=== PATIENT | female | born 1975 | race Caucasian/White ===

== ENCOUNTER → 2017-04-16 | Outpatient (CLI) | payer BC ==
--- NOTE | 2017-04-17 10:13 | MM ---
Reason for exam: screening (asymptomatic). Last mammogram was performed 6 years and 2 months ago. Physical Findings: A clinical breast exam by your physician is recommended on an annual basis and results should be correlated with mammographic findings. MG Screening Mammo w CAD Bilateral CC and MLO view(s) were taken. XCCL view(s) were taken of the left breast. Prior study comparison: February 07, 2011, bilateral digital screening mammo w/CAD. There are scattered fibroglandular densities. There is no discrete abnormality. ASSESSMENT: Negative, BI-RAD 1 RECOMMENDATION: Routine screening mammogram of both breasts in 1 year.
== END | disposition home or self-care (01) ==
LOC: RADMAMWWP 07:30
PROVIDERS: ATTEND Obstetrics & Gynecology
DX: Z12.31 Encounter for screening mammogram for malignant neoplasm of breast (principal)

== ENCOUNTER → 2018-07-17 | Outpatient (CLI) | payer BC ==
--- NOTE | 2018-07-17 14:29 | MM ---
Reason for exam: screening (asymptomatic). Last mammogram was performed 1 year and 3 months ago. Physical Findings: A clinical breast exam by your physician is recommended on an annual basis and results should be correlated with mammographic findings. MG 3D Screening Mammo W/Cad Bilateral CC and MLO view(s) were taken. Prior study comparison: April 16, 2017, bilateral MG screening mammo w CAD. February 07, 2011, bilateral digital screening mammo w/CAD. The breast tissue is heterogeneously dense. This may lower the sensitivity of mammography. Finding: Architectural distortion in the subareolar position of the left breast, stable from 2010. There is no discrete abnormality. ASSESSMENT: Negative, BI-RAD 1 RECOMMENDATION: Routine screening mammogram of both breasts in 1 year.
== END ==
LOC: RADMAMWWP 07:15
PROVIDERS: ATTEND Family Medicine
DX: Z12.31 Encounter for screening mammogram for malignant neoplasm of breast (principal)
CPT/HCPCS: 77063; 77067

== ENCOUNTER 2018-12-26 08:05 | Emergency (ER) | payer BC ==
--- NOTE | 2018-12-26 08:22 | ED ---
Abdominal Pain HPI - General Chief Complaint: Abdominal Pain Stated Complaint: kidney stones Time Seen by Provider: 12/26/18 08:17 Source: patient Mode of arrival: wheelchair Limitations: no limitations - History of Present Illness Initial Comments: 43-year-old female with past history of hypertension and previous nephrolithiasis presenting today for chief complaint of right-sided flank plain that radiates along abdomen towards her groin x 4 hours. Patient states that for him this morning at 4AM she began noticing the right sided flank pain that gradually began radiating down abdomen toward groin, she states is identical to when she's had kidney stones in the past. Patient states the intensity of the pain increases fluctuating in intensity with max being 10 out of 10. Patient states that sometimes the pain is so severe it causes vomiting denies hematemesis. Patient denies any modifying factors. Patient denies any obvious hematuria, dysuria or urgency frequency, chest pain, dyspnea, dyspnea on exertion, numbness, tingling, headache, visual changes, trauma to back or abdomen, melena or hematochezia. Patient does admit to problems is being softer than normal denies kristy diarrhea or constipation. Upon arrival pt is holding right side, appearing uncomfortable. Remaining ROS (-). Upon arrival pt VS within acceptable limits. - Related Data Home Medications Medication Instructions Recorded Confirmed Acetaminophen [Tylenol Extra 500 mg PO TID PRN 12/26/18 12/26/18 Strength] Cholestyramine (with Sugar) 4 gm PO DAILY 12/26/18 12/26/18 [Cholestyramine Packet] Losartan [Cozaar] 25 mg PO DAILY 12/26/18 12/26/18 Previous Rx's Medication Instructions Recorded Cephalexin [Keflex] 500 mg PO Q8HR 5 Days #15 cap 12/26/18 Ketorolac [Toradol] 10 mg PO Q6HR 5 Days #20 tab 12/26/18 Ondansetron [Zofran] 4 mg PO Q8HR PRN 5 Days #15 tab 12/26/18 Allergies Allergy/AdvReac Type Severity Reaction Status Date / Time lisinopril AdvReac Unknown Verified 12/26/18 08:33 Review of Systems ROS Statement: Those systems with pertinent positive or pertinent negative responses have been documented in the HPI. ROS Other: All systems not noted in ROS Statement are negative. Past Medical History Past Medical History: Hypertension Additional Past Medical History / Comment(s): kidney stones History of Any Multi-Drug Resistant Organisms: None Reported Past Surgical History: Section, Cholecystectomy, Tonsillectomy Past Psychological History: No Psychological Hx Reported Smoking Status: Never smoker Past Alcohol Use History: Rare Past Drug Use History: None Reported General Exam - General Exam Comments Initial Comments: General: The patient is awake and alert, no signs of toxicity. Eye: +3 mm pupils are equal, round and reactive to light, extra-ocular movements are intact. No nystagmus. There is normal conjunctiva bilaterally. No signs of icterus. Ears, nose, mouth and throat: There are moist mucous membranes and no oral lesions. Neck: The neck is supple, there is no tenderness or JVD. Cardiovascular: There is a regular rate and rhythm. No rub or gallop is appreciated. Audible murmur. Respiratory: Lungs are clear to auscultation, respirations are non-labored, breath sounds are equal. No wheezes, stridor, rales, or rhonchi. Gastrointestinal: No noted diaphoresis, jaundice, pallor, protecting postures or squirming. Symmetrical pigmentation of abdomen without signs of inflammation, [scars], or striae. Umbilicus mildline, inverted without swelling. No dilated veins. Abdomen contour obese, no noted abdominal distention. No visible masses. No peristalsis, aortic pulsations, or ventral hernia. Bowel sounds audible in all 4 quadrants, unremarkable. Pressing on abdomen on the right side causes pain in the right flank. Liver edge, not palpable. Spleen edge, right and left kidney not palpable. Superior bladder margin non-tender. Special Testing: Negative Graff, Rovsing, McBurney, Betito, cutaneous hyperesthesia. Negative Heel Jar test. No CVA tenderness. Digital rectal exam deferred. Negative norris turners or cullens sign Musculoskeletal: Normal ROM, no tenderness. Strength 5/5. Sensation intact. Pulses equal bilaterally 2+. Neurological: A&O x 3. CN II-XII intact, There are no obvious motor or sensory deficits. Coordination appears grossly intact. Speech is normal. Skin: Skin is warm and dry and no rashes or lesions are noted. Psychiatric: Cooperative, appropriate mood & affect, normal judgment. Limitations: no limitations Course Vital Signs 12/26/18 12/26/18 12/26/18 08:17 10:25 12:05 Temperature 98.2 F 97.6 F 97.7 F Pulse Rate 91 86 83 Respiratory 20 20 18 Rate Blood Pressure 157/86 165/89 150/89 O2 Sat by Pulse 100 100 100 Oximetry Medical Decision Making - Medical Decision Making 43-year-old female with history of renal calculi presenting for right flank pain. Patient states feels similar to stones in the past. Patient given Toradol and Zofran this improved symptoms. Patient given IV fluids. Patient kidney function within normal limits. Patient has mild leukocytosis. Urine consistent with renal calculi, no overt signs of significant infection. Pt will be placed on antibiotics. CT abdomen and KUB revealed large right UJ renal calculi. I discussed the case in detail the time provider Dr. Farfan reviewed imaging studies, this time Dr. Farfan recommended if pain was controlled and patient comfortable with discharge follow-up outpatient with urology. Patient prefers discharge, although admission was offered. Return parameters were discussed at length the patient including immediately return for uncontrolled pain, inability to urinate, fever, chills or nightsweats or any other concerning symptoms. Pt verbalized understanding. Pt given RX for toradol and zofran. Pt discharged appearing well, denied questions at this time aware of all return parameters and outpatient f/u instruction. - Lab Data Result diagrams: 12/26/18 08:40 12/26/18 08:40 Lab Results 12/26/18 12/26/18 12/26/18 Range/Units 08:40 08:40 08:40 WBC 13.6 H (3.8-10.6) k/uL RBC 5.15 (3.80-5.40) m/uL Hgb 13.8 (11.4-16.0) gm/dL Hct 42.7 (34.0-46.0) % MCV 82.9 (80.0-100.0) fL MCH 26.8 (25.0-35.0) pg MCHC 32.3 (31.0-37.0) g/dL RDW 14.3 (11.5-15.5) % Plt Count 286 (150-450) k/uL Neutrophils % 93 % Lymphocytes % 4 % Monocytes % 2 % Eosinophils % 1 % Basophils % 0 % Neutrophils # 12.7 H (1.3-7.7) k/uL Lymphocytes # 0.6 L (1.0-4.8) k/uL Monocytes # 0.2 (0-1.0) k/uL Eosinophils # 0.2 (0-0.7) k/uL Basophils # 0.0 (0-0.2) k/uL Sodium 140 (137-145) mmol/L Potassium 4.3 (3.5-5.1) mmol/L Chloride 106 (98-107) mmol/L Carbon Dioxide 26 (22-30) mmol/L Anion Gap 8 mmol/L BUN 15 (7-17) mg/dL Creatinine 0.97 (0.52-1.04) mg/dL Est GFR (CKD-EPI)AfAm 82 (>60 ml/min/1.73 sqM) Est GFR (CKD-EPI)NonAf 71 (>60 ml/min/1.73 sqM) Glucose 135 H (74-99) mg/dL Calcium 9.6 (8.4-10.2) mg/dL Total Bilirubin 0.7 (0.2-1.3) mg/dL AST 30 (14-36) U/L ALT 56 H (9-52) U/L Alkaline Phosphatase 74 (38-126) U/L Total Protein 7.0 (6.3-8.2) g/dL Albumin 4.2 (3.5-5.0) g/dL Amylase 35 (30-110) U/L Lipase 71 (23-300) U/L Urine Color Yellow Urine Appearance Cloudy H (Clear) Urine pH 5.5 (5.0-8.0) Ur Specific [place] 1.026 (1.001-1.035) Urine Protein 1+ H (Negative) Urine Glucose (UA) Negative (Negative) Urine Ketones Negative (Negative) Urine Blood Large H (Negative) Urine Nitrite Negative (Negative) Urine Bilirubin Negative (Negative) Urine Urobilinogen <2.0 (<2.0) mg/dL Ur Leukocyte Esterase Small H (Negative) Urine RBC 59 H (0-5) /hpf Urine WBC 10 H (0-5) /hpf Ur Squamous Epith Cells 9 H (0-4) /hpf Urine Bacteria Rare H (None) /hpf Hyaline Casts 3 H (0-2) /lpf Urine Mucus Occasional H (None) /hpf Disposition Clinical Impression: Renal calculi Disposition: HOME SELF-CARE Condition: Good Instructions (If sedation given, give patient instructions): Kidney Stones (ED) Additional Instructions: Please use medication as discussed. Please follow-up with urology in next 1-2 days. Please return to emergency room if the symptoms increase or worsen or for any other concerns, or develop fever or pain out of proportion. Prescriptions: Cephalexin [Keflex] 500 mg PO Q8HR 5 Days #15 cap Ketorolac [Toradol] 10 mg PO Q6HR 5 Days #20 tab Ondansetron [Zofran] 4 mg PO Q8HR PRN 5 Days #15 tab PRN Reason: Nausea Is patient prescribed a controlled substance at d/c from ED?: No Referrals: Jaime Gutiérrez MD [Primary Care Provider] - 1-2 days Shaw Cesar MD [STAFF PHYSICIAN] - 1-2 days Time of Disposition: 11:33
[2018-12-26] MEDS: KETOROLAC 30 MG/ML 1 ML VIAL IVP STA ×2 (08:37→10:22)
[2018-12-26] MEDS: ONDANSETRON 4 MG/2 ML VIAL IVP STA ×2 (08:37→10:22)
[2018-12-26 08:54] LABS: Basophils % (A) 0 %; Eosinophils # (A) 0.2 k/uL (0-0.7); Eosinophils % (A) 1 %; HCT 42.7 % (34.0-46.0); HGB 13.8 gm/dL (11.4-16.0); Lymphocytes # (A) 0.6 k/uL (1.0-4.8); Lymphocytes % (A) 4 %; MCH 26.8 pg (25.0-35.0); MCHC 32.3 g/dL (31.0-37.0); MCV 82.9 fL (80.0-100.0); Mean Platelet Volume 6.4; Monocytes # (A) 0.2 k/uL (0-1.0); Monocytes % (A) 2 %; Neutrophils # (A) 12.7 k/uL (1.3-7.7); Neutrophils % (A) 93 %; Platelet Count 286 k/uL (150-450); RBC 5.15 m/uL (3.80-5.40); RDW 14.3 % (11.5-15.5); WBC 13.6 k/uL (3.8-10.6)
[2018-12-26 08:59] LABS: Appearance,Urine Cloudy (Clear); Bacteria,Urine Rare /hpf; Bilirubin,Urine Negative (Negative); Blood,Urine Large (Negative); Color,Urine Yellow; Glucose,Urine (UA) Negative (Negative); Hyaline Casts,Urine 3 /lpf (0-2); Ketones,Urine Negative (Negative); Leukocyte Esterase,Urine Small (Negative); Mucus,Urine Occasional /hpf; Nitrite,Urine Negative (Negative); PH, Urine 5.5 (5.0-8.0); Protein,Urine 1+ (Negative); RBC,Urine 59 /hpf (0-5); Specific Gravity,Urine 1.026 (1.001-1.035); Squamous Epithelial Cell,Urine 9 /hpf (0-4); Urobilinogen,Urine <2.0 mg/dL (<2.0); WBC,Urine 10 /hpf (0-5)
[2018-12-26 09:04] LABS: Albumin 4.2 g/dL (3.5-5.0); Calcium 9.6 mg/dL (8.4-10.2); Potassium 4.3 mmol/L (3.5-5.1); Total Bilirubin 0.7 mg/dL (0.2-1.3)
--- NOTE | 2018-12-26 10:51 | XR ---
EXAMINATION TYPE: XR KUB DATE OF EXAM: 12/26/2018 COMPARISON: None INDICATION: Abdomen pain TECHNIQUE: Single view abdomen upright view FINDINGS: There is a normal bowel gas pattern. Psoas margins are normal. No organomegaly is present. There is a 1.1 x 1.4 cm calcification which may be within the right renal pelvis or ureteropelvic daniel ction. Suspected phleboliths are within the pelvis. IMPRESSION: 1. Right-sided ureteral pelvic junction stone.
--- NOTE | 2018-12-26 11:18 | CT ---
EXAMINATION TYPE: CT abdomen pelvis wo con DATE OF EXAM: 12/26/2018 COMPARISON: 11/24/2011 HISTORY: Stomach pains, nausea and vomiting CT DLP: 1156.4 mGycm Automated exposure control for dose reduction was used. TECHNIQUE: Helical acquisition of images was performed from the lung bases through the pelvis. FINDINGS: LUNG BASES: No significant abnormality is appreciated. LIVER/GB: Surgical clips in the gallbladder fossa. PANCREAS: No significant abnormality is seen. SPLEEN: No significant abnormality is seen. ADRENALS: No significant abnormality is seen. KIDNEYS: There is enlargement of the right kidney with perinephric edema and hydronephrosis nonobstru cting renal pelvic calcification measuring approximately 1.4 cm. URINARY BLADDER: No significant abnormality is seen. ADENOPATHY: None visualized. OSSEOUS STRUCTURES: Bilateral spondylolysis L5. Severe degenerative disc disease. BOWEL: Bowel gas pattern nonspecific. Appendix not visualized. OTHER: 1.9 cm cystic right adnexal lesion likely ovarian. Correlate with pelvic ultrasound. Calcified phleboliths are noted. IMPRESSION: 1. Right-sided hydronephrosis with perinephric edema and obstructing 1.4 cm renal pelvic calcificatio n. 2. 1.9 cm right adnexal cyst likely ovarian. Correlate with ultrasound.
[2018-12-26 12:08] VITALS: BP 150/89; PULSE 83; RESP 18; TEMP 97.7
== END 2018-12-26 12:10 | disposition home or self-care (01) ==
LOC: EC 08:05
DX: N20.0 Calculus of kidney (principal); I10 Essential (primary) hypertension; Z79.899 Other long term (current) drug therapy; Z88.8 Allergy status to other drugs, medicaments and biological substances; Z90.49 Acquired absence of other specified parts of digestive tract
CPT/HCPCS: 36415; 80053; 82150; 83690; 85025; 81001; 74018; 74176; 99284; 96374; 96375; 96376 ×2; J2405; J1885

== ENCOUNTER → 2018-12-29 | Outpatient (CLI) | payer BC | END | disposition home or self-care (01) | LOC: LABPAT 16:04 | PROVIDERS: ATTEND Urology | DX: Z01.818 Encounter for other preprocedural examination (principal); N20.1 Calculus of ureter | CPT/HCPCS: 93005 ==

== ENCOUNTER 2019-01-02 12:28 | Day surgery (SDC) | payer BC ==
--- NOTE | 2018-12-29 17:49 | P.GSHP ---
History of Present Illness H&P Date: 12/29/18 Chief Complaint: Right flank pain The patient is a 43-year-old white female seen in the emergency room 12/26/2018 for evaluation of right flank pain, associated with nausea and vomiting. She was found to have an 11 x 14 mm right UPJ calculus. She has had 2 prior episodes of urolithiasis, neither of which has required surgery. - Constitutional Constitutional: Denies chills, Denies fever - Cardiovascular Cardiovascular: Denies shortness of breath - Gastrointestinal Gastrointestinal: Reports nausea, Reports vomiting - Genitourinary (Female) Genitourinary: Reports flank pain, Reports kidney stones, Denies hematuria - Genitourinary (Male) Genitourinary: Reports urinary frequency Past Medical History Past Medical History: Hypertension Additional Past Medical History / Comment(s): kidney stones History of Any Multi-Drug Resistant Organisms: None Reported Past Surgical History: Section, Cholecystectomy, Tonsillectomy Past Psychological History: No Psychological Hx Reported Smoking Status: Never smoker Past Alcohol Use History: Rare Past Drug Use History: None Reported Medications and Allergies Home Medications Medication Instructions Recorded Confirmed Type Acetaminophen [Tylenol Extra 500 mg PO TID PRN 12/26/18 12/26/18 History Strength] Cephalexin [Keflex] 500 mg PO Q8HR 5 Days #15 cap 12/26/18 Rx Cholestyramine (with Sugar) 4 gm PO DAILY 12/26/18 12/26/18 History [Cholestyramine Packet] Ketorolac [Toradol] 10 mg PO Q6HR 5 Days #20 tab 12/26/18 Rx Losartan [Cozaar] 25 mg PO DAILY 12/26/18 12/26/18 History Ondansetron [Zofran] 4 mg PO Q8HR PRN 5 Days #15 tab 12/26/18 Rx Allergies Allergy/AdvReac Type Severity Reaction Status Date / Time lisinopril AdvReac Unknown Verified 12/26/18 08:33 Surgical - Exam - General well developed, well nourished, no distress - Neck no masses, trachea midline - Respiratory normal respiratory effort, clear to auscultation - Cardiovascular Rhythm: regular - Abdomen Abdomen: soft, non tender, no guarding, no rigid, no rebound - Psychiatric oriented to time, oriented to person, oriented to place, speech is normal, memory intact Results - Imaging CT scan - abdomen: report reviewed, image reviewed Assessment and Plan (1) Calculus of ureter Status: Acute Code(s): N20.1 - CALCULUS OF URETER SNOMED Code(s): 28337087 Plan: Alternative treatment options were reviewed in detail with the patient. These include extracorporal shockwave lithotripsy (ESWL), ureteroscopy with laser lithotripsy, and percutaneous nephrolithotomy. She has elected to undergo cystoscopy, right ureteroscopy with Holmium laser lithotripsy and possible stone basketing. She understands the need for a ureteral stent postoperatively. Potential risks were reviewed. These include anesthesia, bleeding, infection, and ureteral injury. She understands the possible need for secondary treatments.
[2018-12-30 11:32] VITALS: BMI 48.8
[~2019-01-02 12:28] MED LIST: DEXAMETHASONE SOD PHOSPHATE 10 MG/ML 1 ML VIAL IV ONE; HYDROmorphone 0.5 MG/0.5 ML SYRINGE IVP PRN; LACTATED RINGERS 1,000 ML IV SCH; MIDAZOLAM 2 MG/2 ML VIAL IV PRN; ONDANSETRON 4 MG/2 ML VIAL IVP ONE; SCOPOLAMINE 1.5MG/72HR PATCH TRANSDERM ONE; ceFAZolin IN SWFI 2 GM/20 ML SYRINGE IVP ONE
--- NOTE | 2019-01-02 13:04 | XR ---
EXAMINATION TYPE: XR abdomen 1V DATE OF EXAM: 01/02/2019 COMPARISON: 12/26/2018 HISTORY: Preop TECHNIQUE: One view abdominal series FINDINGS: The osseous structures are intact. The bowel gas pattern is nonspecific. There is a 1.1 x 1.4 cm calcification likely within the renal pelvis of the right collecting system. No additional suspicious calcifications bilaterally. There hypertrophic and degenerative changes spin e with spina bifida occulta lumbosacral junction. Surgical clips gallbladder fossa. Calcifications in the pelvis are nonspecific but likely vascular. IMPRESSION: 1. Stable 1.1 x 1.4 cm suspected right renal pelvic calcification.
[2019-01-02] MEDS ORDERED: LIDOCAINE 1% 20 ML VIAL (10MG/ML) FOR IV START INTRADERMA ONE (13:19)
[2019-01-02] MEDS ORDERED: HYDROmorphone (PF) 1 MG/ML ONE (15:20)
[2019-01-02] MEDS ORDERED: PROPOFOL 10 MG/ML 20 ML VIAL IV ONE (15:20)
[2019-01-02] MEDS ORDERED: ROCURONIUM BROMIDE 10 MG/ML 10 ML VIAL IV ONE (15:20)
[2019-01-02] MEDS ORDERED: GLYCOPYRROLATE 0.2 MG/ML 2 ML VIAL ONE (15:20)
[2019-01-02] MEDS ORDERED: NEOSTIGMINE 1 MG/ML 10 ML VIAL ONE (15:20)
[2019-01-02] MEDS ORDERED: fentaNYL (PF) 50 MCG/ML 2 ML AMP ONE (15:20)
[2019-01-02] MEDS ORDERED: MIDAZOLAM 2 MG/2 ML VIAL ONE (15:20)
[2019-01-02] MEDS ORDERED: LIDOCAINE 1% INJ 10MG/ML (20 ML MDV) ONE (15:20)
--- NOTE | 2019-01-02 17:02 | P.OP ---
Date of Procedure: 01/02/19 Preoperative Diagnosis: Right UPJ Calculus Postoperative Diagnosis: Right Ureteral Calculus Procedure(s) Performed: Cystoscopy, right ureteroscopy with holmium laser lithotripsy, right ureteral stent insertion Anesthesia: JUSTYNA Surgeon: Pablo Jimenez Estimated Blood Loss (ml): 5 IV fluids (ml): 600 Pathology: other (Calculus fragments, sent for chemical analysis) Condition: stable Disposition: PACU Indications for Procedure: The patient is a 43-year-old white female seen in the emergency room 12/26/2018 for evaluation of right flank pain, associated with nausea and vomiting. She was found to have an 11 x 14 mm right UPJ calculus. She has had 2 prior episodes of urolithiasis, neither of which has required surgery. She has elected to undergo endoscopic removal of the calculus. Operative Findings: Large right proximal ureteral calculus, impacted. Calculus completely fragmented. Description of Procedure: The patient was taken to the operating room and placed in the dorsolithotomy position, with legs supported in Fam stirrups. The external genitalia was prepped and draped sterilely. The 30 lens was used to introduce the 22-Stateless Stortz cystoscopic sheath through the urethra and into the bladder under direct vision. The bladder was examined in its entirety. Both ureteral orifices were normal anatomic location and configuration, and clear urine effluxed from both. No tumors or foreign bodies were seen. The 0.038 inch Glidewire was passed through the cystoscope. The right ureteral orifice was cannulated, and the Glidewire was advanced up to the calculus. It passed beyond the calculus without difficulty and coiled within the right renal pelvis. An 11/13-Stateless ureteral access catheter was passed over the wire up to the proximal ureter. The Olympus flexible ureteroscope was passed through the ureteral access catheter sheath and up to the calculus. The 200 micron Holmium laser probe was passed through the ureteroscope, and lithotripsy was performed. The calculus was impacted but fragmented reasonably well. Initially, a dusting technique was utilized. The calculus was fragmented well, but a portion of the calculus refluxed into an upper pole calyx. The ureteroscope was advanced, and lithotripsy was continued using both a dusting and popcorning technique. This was continued until all calculus fragments were no larger than 1-2 mm in diameter. The ureteroscope was slowly withdrawn. There was no evidence of ureteral trauma. There were no calculi seen within the ureter. After removing the ureteroscope, the Glidewire was passed through the ureteral access catheter sheath, which was then removed. The Glidewire is backloaded into the cystoscope, which was passed into the bladder. A 22, 6-Stateless double-J ureteral stent was placed over the wire. Proper stent positioning was verified fluoroscopically and endoscopically. The bladder was emptied and the cystoscope removed. Some small calculus fragments which passed through the ureteral access catheter sheath were collected and sent for chemical analysis. The patient tolerated the procedure well and was taken to the recovery room in stable condition.
[2019-01-02 17:13] VITALS: TEMP 97.9
[2019-01-02] MEDS ORDERED: LABETALOL 5 MG/ML VIAL MDV IVP ONE ×2 (17:19→17:54)
[2019-01-02 17:32] VITALS: RESP 16
[2019-01-02] MEDS ORDERED: ONDANSETRON 4 MG/2 ML VIAL IVP ONE (17:58)
[2019-01-02] MEDS ORDERED: LACTATED RINGERS 1,000 ML IV ONE ×2 (18:07)
[2019-01-02] MEDS ORDERED: KETOROLAC 30 MG/ML 1 ML VIAL IVP ONE (18:21)
[2019-01-02 19:00] VITALS: BP 138/84; PULSE 77
--- NOTE | 2019-01-03 07:53 | FL ---
EXAMINATION TYPE: FL guidance operating room DATE OF EXAM: 01/02/2019 CLINICAL HISTORY: Right-sided nephrolithiasis with stent placement. Fluoroscopic documentation. TECHNIQUE: Fluoroscopy. COMPARISON: None. FINDINGS: Fluoroscopic guidance was provided during procedure performed by Dr. Jimenez. A total of 2 0 seconds of fluoroscopic time was utilized during the procedure and 1 spot images was acquired. IMPRESSION: As Above.
== END 2019-01-02 19:06 | disposition home or self-care (01) ==
LOC: OR 12:28
PROVIDERS: ATTEND Urology
DX: N20.1 Calculus of ureter (principal); Z87.442 Personal history of urinary calculi; I10 Essential (primary) hypertension; Z79.899 Other long term (current) drug therapy; Z88.8 Allergy status to other drugs, medicaments and biological substances
CPT/HCPCS: 81025; 82365; 74018; 52356; C1769; C2625; J2250; J1100; J2710; J2405; J2001; J3010; J1885; J1170; J2704

== ENCOUNTER → 2019-01-30 | Outpatient (CLI) | payer BC ==
--- NOTE | 2019-01-30 14:07 | XR ---
Abdomen HISTORY: Calculus of kidney Frontal view of the abdomen on [address] abdomen and plain film abdomen 12/26/2018 Surgical clips again noted in the right upper quadrant. Calcifications in the right paraspinal locati on is no longer seen. Multiple calcifications are present within the pelvis. Bowel gas may obscure un derlying detail. IMPRESSION: Paraspinal location seen on previous exam is no longer seen.
== END ==
LOC: RADXRMAIN 11:20
PROVIDERS: ATTEND Urology
DX: N20.0 Calculus of kidney (principal)
CPT/HCPCS: 74018

== ENCOUNTER → 2019-03-05 | Outpatient (CLI) | payer BC ==
--- NOTE | 2019-03-05 14:08 | US ---
EXAMINATION TYPE: US kidneys/renal and bladder DATE OF EXAM: 03/05/2019 COMPARISON: CT abdomen and pelvis December 26, 2018 CLINICAL HISTORY: R93.4 hx of hydronephrosis. EXAM MEASUREMENTS: Right Kidney: 12.3 x 4.2 x 5.0 cm Left Kidney: 11.8 x 4.6 x 5.4 cm Right Kidney: No hydronephrosis or masses seen Left Kidney: Inferior pole obscured by bowel gas, no hydronephrosis or masses seen Bladder: wnl Incidental finding of left ovarian thin-walled cyst measuring 2.6 x 1.9 x 2.0cm There is no evidence for hydronephrosis at this point in time. No nephrolithiasis is seen. No trenton s are identified. The urinary bladder is anechoic. Bilateral ureteral jets are seen. IMPRESSION: Suspected successful interval treatment of right ureter calculus. No right-sided hydronep hrosis identified on current study.
== END | disposition home or self-care (01) ==
LOC: RADUSWWP 13:23
PROVIDERS: ATTEND Urology
DX: Z09 Encounter for follow-up examination after completed treatment for conditions other than malignant neoplasm (principal); Z87.448 Personal history of other diseases of urinary system
CPT/HCPCS: 76770

== ENCOUNTER → 2019-08-04 | Outpatient (CLI) | payer BC ==
--- NOTE | 2019-08-06 15:00 | MM ---
Reason for exam: screening (asymptomatic). Last mammogram was performed 1 year and 1 month ago. Physical Findings: A clinical breast exam by your physician is recommended on an annual basis and results should be correlated with mammographic findings. MG 3D Screening Mammo W/Cad Bilateral CC and MLO view(s) were taken. Prior study comparison: July 17, 2018, bilateral MG 3d screening mammo w/cad. April 16, 2017, bilateral MG screening mammo w CAD. The breast tissue is heterogeneously dense. This may lower the sensitivity of mammography. No suspicious abnormality. Stable left inferior anterior depth asymmetry back to 2017. No significant changes when compared with prior studies. ASSESSMENT: Benign, BI-RAD 2 RECOMMENDATION: Routine screening mammogram of both breasts in 1 year.
== END | disposition home or self-care (01) ==
LOC: RADMAMWWP 07:56
PROVIDERS: ATTEND Family Medicine
DX: Z12.31 Encounter for screening mammogram for malignant neoplasm of breast (principal)
CPT/HCPCS: 77063; 77067

== ENCOUNTER → 2020-04-04 | Outpatient (CLI) | payer BC ==
[2020-04-04 09:26] LABS: Basophils % (A) 1 %; Eosinophils # (A) 0.1 k/uL (0-0.7); Eosinophils % (A) 2 %; HCT 42.5 % (34.0-46.0); HGB 13.4 gm/dL (11.4-16.0); Lymphocytes # (A) 1.5 k/uL (1.0-4.8); Lymphocytes % (A) 25 %; MCH 26.6 pg (25.0-35.0); MCHC 31.5 g/dL (31.0-37.0); MCV 84.5 fL (80.0-100.0); Mean Platelet Volume 7.5; Monocytes # (A) 0.3 k/uL (0-1.0); Monocytes % (A) 5 %; Neutrophils # (A) 4.1 k/uL (1.3-7.7); Neutrophils % (A) 66 %; Platelet Count 225 k/uL (150-450); RBC 5.03 m/uL (3.80-5.40); WBC 6.3 k/uL (3.8-10.6)
[2020-04-04 17:50] LABS: African American GFR (CKD) 102.5 (60.0-200.0); Albumin 4.1 g/dL (3.80-4.90); Albumin/Globulin Ratio 2.28 (1.60-3.17); Anion Gap 7.1 mmol/L (4.00-12.00); BUN/Creat Ratio 16.25 Ratio (12.00-20.00); Calcium 8.8 mg/dL (8.7-10.3); Carbon Dioxide 28.9 mmol/L (21.6-31.8); Chol/HDL Ratio 2.94; Globulin 1.8 g/dL (1.6-3.3); LDL Cholesterol,Calculated 84.8 mg/dL (0.0-131.0); Non-African American GFR(CKD) 88.4 (60.0-200.0); Potassium 4.5 mmol/L (3.5-5.5); Total Bilirubin 0.7 mg/dL (0.2-1.2); Total Protein 5.9 g/dL (6.2-8.2); VLDL Calculation 12.2 mg/dL (5.00-40.00)
[2020-04-04 21:11] LABS: Hemoglobin A1C 5.1 % (4.0-6.0)
== END | disposition home or self-care (01) ==
LOC: LABWHC1 08:22
PROVIDERS: ATTEND Family Medicine
DX: Z00.00 Encounter for general adult medical examination without abnormal findings (principal)
CPT/HCPCS: 36415; 80053; 80061; 83036; 84443; 85025

== ENCOUNTER → 2021-05-12 | Outpatient (CLI) | payer BC ==
--- NOTE | 2021-05-16 13:37 | MM ---
Reason for exam: screening (asymptomatic). Last mammogram was performed 1 year and 9 months ago. Physical Findings: A clinical breast exam by your physician is recommended on an annual basis and results should be correlated with mammographic findings. MG 3D Screening Mammo W/Cad Bilateral CC and MLO view(s) were taken. Prior study comparison: August 04, 2019, bilateral MG 3d screening mammo w/cad. July 17, 2018, bilateral MG 3d screening mammo w/cad. There are scattered fibroglandular densities. No significant changes when compared with prior studies. ASSESSMENT: Benign, BI-RAD 2 RECOMMENDATION: Routine screening mammogram of both breasts in 1 year.
== END | disposition home or self-care (01) ==
LOC: RADMAMWWP 07:12
PROVIDERS: ATTEND Family Medicine
DX: Z12.31 Encounter for screening mammogram for malignant neoplasm of breast (principal)
CPT/HCPCS: 77063; 77067

== ENCOUNTER → 2021-06-14 | Outpatient (CLI) | payer BC ==
--- NOTE | 2021-06-14 18:00 | MR ---
EXAMINATION TYPE: MR iac wo/w con DATE OF EXAM: 06/14/2021 COMPARISON: 12/04/2012 HISTORY: 45-year-old female R42, Vertigo TECHNIQUE: Multiplanar, multisequence images of the brain and brainstem were acquired before and aft er administration of 11.5 mL IV Gadavist. Diffusion weighted imaging was performed. Additional cone d-down sequences through the internal auditory canals and posterior cranial fossa before and after IV contrast administration. FINDINGS: Diffusion weighted images demonstrate no evidence of an acute ischemic lesion in the brain. T2/FLAIR weighted sequences show minimal right white matter change with only a couple punctate foci i n the subcortical regions, likely normal age-related change. Midline structures demonstrate normal morphology. The craniocervical junction is normal. There is mild cerebral atrophy. The ventricles are of normal caliber. There is no evidence of an acute intracranial hemorrhage, infarct, mass, mass-effect or an extra-axia l fluid collection. There is no cerebellopontine angle mass. The left vertebral artery is dominant. Suspect a hypoplastic V4 segment after the PICA takeoff. Brainstem and skull base abnormalities are not seen. Post contrast images demonstrate no evidence of pathologic enhancement in the posterior cranial ant a or the internal auditory canals. There is no abnormal enhancement of the labyrinths. Mastoid air cells remain pneumatized. Suspect a small underlying 9 mm Tornwaldt cyst in the posterior nasopharynx. Trace mucosal thickening ethmoid air cells. The anterior aspect of the globes is distorted by artifact. Moderately advanced degenerative change right TMJ. IMPRESSION: 1. Mild cerebral atrophy. No acute intracranial abnormality seen. 2. Dominant left vertebral artery. 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 3. Otherwise, no specific abnormality on acoustic MRI. 4. Moderately advanced right TMJ OA.
== END | disposition home or self-care (01) ==
LOC: RADMRIMAIN 14:46
PROVIDERS: ATTEND Otolaryngology
DX: M26.641 Arthritis of right temporomandibular joint (principal); G31.9 Degenerative disease of nervous system, unspecified
CPT/HCPCS: 70553; A9585

== ENCOUNTER → 2022-08-10 | Outpatient (CLI) | payer BC ==
--- NOTE | 2022-08-13 08:36 | MM ---
Reason for Exam: Screening (asymptomatic). Last mammogram was performed 1 year(s) and 3 month(s) ago. Patient History: Menarche at age 11. First Full-Term at age 24. Risk Values: Joan 5 year model risk: 1.0%. NCI Lifetime model risk: 10.0%. Prior Study Comparison: 07/17/2018 Bilateral Screening Mammogram, [facility]. 08/04/2019 Bilateral Screening Mammogram, [facility]. 05/12/2021 Bilateral Screening Mammogram, [facility]. Tissue Density: The breast tissue is heterogeneously dense. This may lower the sensitivity of mammography. Findings: Analyzed By CAD. There is no suspicious group of microcalcifications or new suspicious mass in either breast. Stable benign calcifications within both breasts. No significant change from prior exam. Overall Assessment: Benign, BI-RAD 2 Management: Screening Mammogram of both breasts in 1 year. A clinical breast exam by your physician is recommended on an annual basis and results should be correlated with mammographic findings. Electronically signed and approved by: Be Lutz D.O.
== END | disposition home or self-care (01) ==
LOC: RADMAMWWP 08:11
PROVIDERS: ATTEND Family Medicine
DX: Z12.31 Encounter for screening mammogram for malignant neoplasm of breast (principal)
CPT/HCPCS: 77063; 77067

== ENCOUNTER → 2023-11-06 | Outpatient (CLI) | payer BC ==
--- NOTE | 2023-11-08 15:32 | MM ---
Reason for Exam: Screening (asymptomatic). Last mammogram was performed 1 year(s) and 3 month(s) ago. Patient History: Menarche at age 11. First Full-Term at age 24. Perimenopausal. Risk Values: Joan 5 year model risk: 1.1%. NCI Lifetime model risk: 9.9%. Prior Study Comparison: 08/04/2019 Bilateral Screening Mammogram, [facility]. 05/12/2021 Bilateral Screening Mammogram, [facility]. 08/10/2022 Bilateral MG 3D screening mammo w/cad, [facility]. Tissue Density: There are scattered fibroglandular densities. Findings: Analyzed By CAD. Pattern appears symmetrical and stable. No significant interval change is evident. No suspicious groups of microcalcifications, spiculated or lobular masses, architectural distortion or other secondary signs of malignancy are mammographically apparent. Overall Assessment: Benign, BI-RAD 2 Management: Screening Mammogram of both breasts in 1 year. A negative mammogram report should not preclude additional follow up of suspicious palpable abnormalities. Patient should continue monthly self breast exam. A clinical breast exam by your physician is recommended on an annual basis and results should be correlated with mammographic findings. Electronically signed and approved by: Chris Crocker D.O. Radiologis
== END | disposition home or self-care (01) ==
LOC: RADMAMWWP 08:15
PROVIDERS: ATTEND Family Medicine
DX: Z12.31 Encounter for screening mammogram for malignant neoplasm of breast (principal)
CPT/HCPCS: 77063; 77067

== ENCOUNTER → 2024-04-27 | Outpatient (CLI) | payer BC ==
--- NOTE | 2024-04-27 11:23 | MR ---
EXAMINATION TYPE: MR lumbar spine wo con DATE OF EXAM: 04/27/2024 COMPARISON: NONE HISTORY: Low back pain into left leg TECHNIQUE: T1 and T2 axial and sagittal images of the lumbar spine are submitted. FINDINGS: There is no abnormal signal seen within the visualized spinal cord or paraspinal soft tissu es. At L1-2 there is no disc herniation or canal stenosis. No foraminal impingement. At L2-3 there is disc desiccation. Mild circumferential disc bulging without evidence of focal hernia tion. Neural foramina remain patent. At L3-4 there is mild disc desiccation with no disc herniation or canal stenosis. Neural foramina rem ain patent. Tiny annular tear. Mild right lateral disc bulging. At L4-5 there is no disc herniation or canal stenosis. Mild facet arthropathy. No significant degener ative disc disease. No foraminal protrusion. At L5-S1 there is bilateral spondylolysis of L5 with grade 1 anterior listhesis L5-S1. There is moder ate bilateral foraminal encroachment. Degenerative disc disease noted. No canal stenosis. There is a central disc protrusion or bulge at T10-T11. IMPRESSION: 1. 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 2. Annular tear at L2-3 and L3-L4 with no discrete herniation or canal stenosis. 3. Sagittal disc protrusion T10-T11 only included on the sagittal images. Consider follow-up thoracic spine MRI as clinically warranted.
== END | disposition home or self-care (01) ==
LOC: RADMRIMAIN 09:56
PROVIDERS: ATTEND Orthopaedic Surgery
DX: Q05.9 Spina bifida, unspecified (principal); M47.816 Spondylosis without myelopathy or radiculopathy, lumbar region; M43.17 Spondylolisthesis, lumbosacral region; M51.36 Other intervertebral disc degeneration, lumbar region; M51.24 Other intervertebral disc displacement, thoracic region
CPT/HCPCS: 72148

== ENCOUNTER → 2024-05-28 | Outpatient (CLI) | payer BC ==
[2024-05-28 09:01] VITALS: BP 152/89; PULSE 95; RESP 16
--- NOTE | 2024-05-28 10:34 | P.PAINPG ---
Objective - Vital Signs Vital signs: Intake & Output 05/27/24 05/28/24 05/28/24 18:59 06:59 18:59 Weight 118.841 kg PQRS Measure Charge Sheet Comment: HISTORY OF PRESENT ILLNESS: A 48 yr old female as a referral from [facility] presents today w severe and chronic LBP > 1 yr secondary to DDD, spondylosis and facet arthropathy without myelopathy for evaluation. Pt states pain level is provoked at 9 /10 in intensity, constant, localized in the lumbar spine, predominantly axial, sharp in character w occasional shooting pain towards the LLE. Pain is provoked by sitting up from a supine position. Pain is alleviated by PT x 6 wks which ended in 2021, physician guided home exercises 5 times weekly since 2021, heat, ice, medications (Robaxin, Celebrex, Ketorolac), repositioning and rest . Oswestry axial pain score at 26. PMH: OA, HTN, Nephrolithiasis PSH: Cystoscopy/ Uteroscopy/ Lithotripsy (2018), C- section, Uterine Ablation, Cholecystectomy, Tonsillectomy SH: Never smoker, Rare ETOH use, No illicit drug use FH: Non contributory All: See list Meds: See list REVIEW OF ORGAN SYSTEMS: CONSTITUTIONAL: No fevers or chills. No recent weight loss. NEUROLOGICAL: + numbness and tingling along the distal e xtremities. No seizure disorders or headaches. MUSCULOSKELETAL: + pain PSYCHIATRIC: Denies current depression or suicidal thoughts. Physical Examinations : Constitutional : Cooperative , not in acute distress . Neurologic : Cranial nerve II to XII intact. No focal neurological deficits. Psychiatric : alert & oriented x 3. Matching mood & appropriate affect. Judgment & insight intact. Musculoskeletal : Cervical Spine Motor strength in the deltoid and biceps: Normal right side. Normal Left side Motor strength biceps and the wrist extensors: Normal right side . Normal left side Motor strength in the triceps muscle: Normal right side. Normal left side Deep tendon reflexes: Normal at the biceps. Normal at Brachioradialis. Normal at triceps Vertebral body tenderness to deep palpation over Cervical facet loading test: positive bilaterally Spurling test: positive bilaterally Neck distraction test: positive bilaterally Azam sign: positive bilaterally Lumbar spine Motor strength lower extremities ,thigh and legs 5/5 Right side , 5/5 Left side Deep tendon reflexes : Normal Knee Jerk. Normal Ankle Jerk Vertebral body tenderness over L5 Rucker Test positive BL L5-S1 Lumbar facet Loading Test: positive Right / positive Left Range of motion of the lumbar spine Flexion 30 degrees, extension 10 degrees Straight Leg Raise test: Left/ Right positive at degrees Lilo test: positive right / positive left. Severe tenderness over the Sacroiliac joint on the Right / Left sides Gaenslen test: positive bilaterally Seated flexion test: positive bilater ally. Sacral spine : Severe tenderness over the Sacroiliac joint: right side / left side Range of motion: Flexion of the lumbar spine <60 degrees Range of motion: Extension of the lumbar spine <20 degrees Gaenslen's Test positive Lilo test: positive right side / left side Thigh Thrust Test Sacral Thrust Test Imaging: MRI non contrast of the lumbar spine from 04/27/24 Assessment/ Plan : Lumbar radiculopathy Recommendation of SCOOBY L5-S1 #1. Risks, benefits of procedure discussed and patient verbalized understanding. Admits to anti- coagulant use or medical history of diabetes. Protocol for discontinuation/ continuation of medications kathi procedure discussed. All questions answered. I have spent greater than 30 minutes on patient care today. Dr Lafleur was available by phone for the evaluation of this patient. The time was used to review the medical records including relevant urine studies and Prescription history (MAPs), review of the available imaging, evaluation and examination of the patient, coordination of care with the medical staff and if applicable [facility] physicians, as well as creation of the medical record PQRS Narrative: Smoking Status Never smoker Home Medications: Ambulatory Orders Cholestyramine (with Sugar) [Cholestyramine Packet] 4 gm PO DAILY 12/26/18 Losartan [Cozaar] 25 mg PO HS 12/26/18 [place] 1 tab PO Q6H PRN 12/30/18 Celecoxib [CeleBREX] 100 mg PO BID 05/28/24 Ketorolac [Toradol] 10 mg PO Q6HR 05/28/24 Semaglutide [Wegovy] 0.5 mg SQ 05/28/24 methocarbamoL 500 mg PO DAILY 05/28/24 Controlled Substance Measures - Controlled Substance Measures Is patient prescribed a controlled substance at discharge?: No
== END ==
LOC: PNWHC3 08:34
PROVIDERS: ATTEND Specialist
DX: M47.27 Other spondylosis with radiculopathy, lumbosacral region (principal); Z88.8 Allergy status to other drugs, medicaments and biological substances
CPT/HCPCS: 99211

== ENCOUNTER 2024-06-12 12:15 | Day surgery (SDC) | payer BC ==
[2024-06-12] MEDS ORDERED: IOPAMIDOL M200 10 ML VIAL ONE (12:45)
[2024-06-12] MEDS ORDERED: methylPREDNISolone ACETATE 80 MG/ML 1 ML VIAL ONE (12:45)
--- NOTE | 2024-07-28 18:21 | FL ---
EXAMINATION TYPE: FL guided pain mgmt statistic DATE OF EXAM: 06/30/2024 5:05 PM COMPARISON: Pre Operative Images if available both CT/MRI or plain film CLINICAL INDICATION: Female, 49 years old with history of LESI; TECHNIQUE: FL guided pain mgmt statistic, multiple fluoroscopic images provided for procedure. Total fluoroscopy time: 11.3 seconds Total submitted images to PACS: 1 DAP: [id number] mGym2 Gycm2 uGym2 cGycm2 or equivalent. FINDINGS: Fluoroscopic images during injection for pain management demonstrate multilevel degeneration changes throughout the spine. No evidence for fracture. No acute process identified. IMPRESSION: 1. No evidence for intraoperative complication. 2. Please see the operative/procedural note for further details. [facility], , 07/28/2024 6:18 PM
== END 2024-06-12 13:20 ==
LOC: ORPAIN 12:15
PROVIDERS: ATTEND Specialist
DX: M51.16 Intervertebral disc disorders with radiculopathy, lumbar region (principal); Z88.8 Allergy status to other drugs, medicaments and biological substances
CPT/HCPCS: 62323; 81025

== ENCOUNTER → 2024-07-02 | Outpatient (CLI) | payer BC ==
[2024-07-02 08:32] VITALS: BP 155/97; PULSE 62; RESP 16; TEMP 97.9
--- NOTE | 2024-07-02 14:11 | P.PAINPG ---
PQRS Measure Charge Sheet Comment: HISTORY OF PRESENT ILLNESS: A 49 yr old female presents today w severe and chronic LBP > 1 yr secondary to DDD, spondylosis and facet arthropathy without myelopathy for evaluation s/p SCOOBY L5-S1 #1. Pt states she experienced 30 % pain relief x 3 wks s/p procedure. Pt states pain level is provoked at 9 /10 in intensity, constant, localized in the lumbar spine, predominantly axial, sharp in character w occasional shooting pain towards the LLE. Pain is provoked by sitting up from a supine position. Pain is alleviated by PT x 6 wks which ended in 2021, physician guided home exercises 5 times weekly since 2021, heat, ice, medications, repositioning and rest . Interventional procedures include SCOOBY L5-S1 x1 Medications include Robaxin, Celebrex, Ketorolac REVIEW OF ORGAN SYSTEMS: CONSTITUTIONAL: No fevers or chills. No recent weight loss. NEUROLOGICAL: + numbness and tingling along the distal extremities. No seizure disorders or headaches. MUSCULOSKELETAL: + pain PSYCHIATRIC: Denies current depression or suicidal thoughts. Physical Examinations : Constitutional : Cooperative , not in acute distress . Neurologic : Cranial nerve II to XII intact. No focal neurological deficits. Psychiatric : alert & oriented x 3. Matching mood & appropriate affect. Judgment & insight intact. Musculoskeletal : Cervical Spine Motor strength in the deltoid and biceps: Normal right side. Normal Left side Motor strength biceps and the wrist extensors: Normal right side . Normal left side Motor strength in the triceps muscle: Normal right side. Normal left side Deep tendon reflexes: Normal at the biceps. Normal at Brachioradialis. Normal at triceps Vertebral body tenderness to deep palpation over Cervical facet loading test: positive bilaterally Spurling test: positive bilaterally Neck distraction test: positive bilaterally Azam sign: positive bilaterally Lumbar spine Motor strength lower extremities ,thigh and legs 5/5 Right side , 5/5 Left side Deep tendon reflexes : Normal Knee Jerk. Normal Ankle Jerk Vertebral body tenderness over L5 Rucker Test positive BL L5-S1 Lumbar facet Loading Test: positive Right / positive Left L4-L5, L5-S1 Range of motion of the lumbar spine Flexion 30 degrees, extension 10 degrees Straight Leg Raise test: Left/ Right positive at degrees Lilo test: positive right / positive left. Severe tenderness over the Sacroiliac joint on the Right / Left sides Gaenslen test: positive bilaterally Seated flexion test: positive bilaterally. Sacral spine : Severe tenderness over the Sacroiliac joint: right side / left side Range of motion: Flexion of the lumbar spine <60 degrees Range of motion: Extension of the lumbar spine <20 degrees Gaenslen's Test positive Lilo test: positive right side / left side Thigh Thrust Test Sacral Thrust Test Imaging: MRI non contrast of the lumbar spine from 04/27/24 Assessment/ Plan : Lumbar radiculopathy Recommendation of BL MBB L4-L5/ L5-S1 #1. Risks, benefits of procedure discussed and patient verbalized understanding. Admits to anti- coagulant use or medical history of diabetes. Protocol for discontinuation/ continuation of medications p maryan procedure discussed. Minimal anesthesia including Fentanyl and Versed if clinically indicated. All questions answered. I have spent greater than 30 minutes on patient care today. Dr Lafleur was a vailable by phone for the evaluation of this patient. The time was used to review the medical records including relevant urine studies and Prescription history (MAPs), review of the available imaging, evaluation and examination of the patient, coordination of care with the medical staff and if applicable referring physicians, as well as creation of the medical record PQRS Narrative: Smoking Status Never smoker Hx Alcohol Use (MH) No Home Medications: Ambulatory Orders Cholestyramine (with Sugar) [Cholestyramine Packet] 4 gm PO DAILY 12/26/18 Losartan [Cozaar] 25 mg PO HS 12/26/18 [place] 1 tab PO Q6H PRN 12/30/18 Celecoxib [CeleBREX] 100 mg PO BID 05/28/24 Ketorolac [Toradol] 10 mg PO Q6HR 05/28/24 Semaglutide [Wegovy] 0.5 mg SQ 05/28/24 methocarbamoL 500 mg PO DAILY 05/28/24 Controlled Substance Measures - Controlled Substance Measures Is patient prescribed a controlled substance at discharge?: No
== END ==
LOC: PNWHC3 07:57
PROVIDERS: ATTEND Specialist
DX: M54.16 Radiculopathy, lumbar region
CPT/HCPCS: 99211

== ENCOUNTER 2024-07-28 07:17 | Day surgery (SDC) | payer BC ==
[2024-07-22 15:07] VITALS: BMI 50.0
[2024-07-28] MEDS ORDERED: LACTATED RINGERS 1,000 ML IV SCH (07:45)
[2024-07-28 07:47] VITALS: TEMP 97.9
[2024-07-28] MEDS: IV FLUID CONTINUATION 1,000 ML IV ONE ×2 (07:49→08:25)
[2024-07-28] MEDS ORDERED: MIDAZOLAM 2 MG/2 ML VIAL ONE (08:05)
[2024-07-28] MEDS ORDERED: ROPIVACAINE 5MG/ML 20ML VIAL ONE (08:05)
--- NOTE | 2024-07-28 08:23 | P.PCN ---
Date of Procedure: 07/28/24 Description of Procedure: Pre- and Post-operative Diagnosis: Lumbar facet arthropathy, and lumbar spondylosis without myelopathy. Procedure: #1 Diagnostic Medial Branch Block at bilateral Lumbar 4/5 and #1 diagnostic dorsal ramus block at Lumbar 5/ sacral ala levels (total 4 levels) Surgeon: Travis Lang Anesthesia: Local: 1% Lidocaine, IV sedation : Versed 2 mg Sedation supervision timings: 804- 818 Complications: None EBL: None Specimen removed: None Fluoroscopic image: Saved to patient electronic medical records. Indications for Procedure: The patient is well known to pain clinic for his chronic low back pain management. The lumbar facet loading test was positive with a clinical diagnosis of lumbar facet arthropathy. Failed with conservative therapy. Came here for interventional help for better pain relief. Procedure and Findings: The patient was seen and examined. The written informed consent was obtained after explaining the risks, benefits and alternatives of the procedure to the patient. The patient was brought to the procedure room and was placed in the prone position on the operating table table. A pillow was placed under the abdomen to reduce lumbar lordosis. Standard anesthesia monitoring was done through out the procedure. The skin preparation was done with ChloraPrep, and draping was done in usual sterile fashion. Sterile technique was observed throughout the procedure. Under fluoroscopic guidance, right the Lumbar 4, 5 and Sacral ala levels were identified in the AP view. For lumbar L4, and L5 levels the targeting area of superior articular process, and close to the most medial and superior aspect of transverse process identified, marked. 1ml of 1% Lidocaine was used with a 25 gauge needle to achieve adequate local anesthesia of the skin and subcutaneous tissue at each level. A 22 gauge 5 inch spinal needle was placed and advanced targeting area which was close to the most medial and superior aspect of the transverse process. For Lumbar 5/ sacral ala level, fluoroscope was used in the anteroposterior view, and the needle tip was placed at the superior and most medial part of sacral ala close to the superior articular process. A bony contact was obtained and needle tip position was confirmed at anteroposterior view. No paresthesia was noted. A negative aspiration was confirmed. 0.5 ml solution per level was injected, the block solution containing 4 ml of 0.5% ropivacaine preservative-free solution. The needles were removed intact. Entire procedure repeated on the left side. Lumbar area was cleaned and bandages were applied. Disposition : The patient tolerated the procedure very well. The patient was transferred to the recovery room and remained stable until discharged home. The patient was given detailed discharge instructions for infection, bleeding, and increased pain at the injection site, and was advised to seek immediate medical attention should significant side effects develop. The patient will be scheduled with Pain Clinic within 2-4 weeks for repeat procedure if it's helpful.
[2024-07-28 08:34] VITALS: RESP 16
[2024-07-28 08:42] VITALS: BP 123/79; PULSE 84
--- NOTE | 2024-07-28 18:13 | FL ---
EXAMINATION TYPE: FL guided pain mgmt statistic DATE OF EXAM: 07/28/2024 8:26 AM COMPARISON: Pre Operative Images if available both CT/MRI or plain film CLINICAL INDICATION: Female, 49 years old with history of M47.816 LUMBAR SPONDYLOSIS; TECHNIQUE: FL guided pain mgmt statistic, multiple fluoroscopic images provided for procedure. Total fluoroscopy time: 21.4 seconds Total submitted images to PACS: 4 DAP: [id number] mGym2 Gycm2 uGym2 cGycm2 or equivalent. FINDINGS: Fluoroscopic images during injection for pain management demonstrate multilevel degeneration changes throughout the spine. No evidence for fracture. No acute process identified. IMPRESSION: 1. No evidence for intraoperative complication. 2. Please see the operative/procedural note for further details. [facility], , 07/28/2024 6:11 PM
== END 2024-07-28 09:05 | disposition home or self-care (01) ==
LOC: ORPAIN 07:17
DX: M47.816 Spondylosis without myelopathy or radiculopathy, lumbar region
CPT/HCPCS: 99152

== ENCOUNTER → 2024-08-10 | Outpatient (CLI) | payer BC ==
[2024-08-10 10:38] VITALS: BP 123/82; PULSE 84; RESP 16
--- NOTE | 2024-08-10 14:49 | P.PAINPG ---
PQRS Measure Charge Sheet Comment: HISTORY OF PRESENT ILLNESS: A 49 yr old female presents today w severe and chronic LBP > 1 yr secondary to radiculopathy, spondylosis and facet arthropathy without myelopathy for evaluation s/p BL MBB L4-L5/ L5-S1 #1. Pt states she experienced 80 % pain relief x 4 hr s/p procedure. Pt states pain level is provoked at 9 /10 in intensity, constant, localized in the lumbar spine, predominantly axial, sharp in character without shooting pain. Pain is provoked by sitting up from a supine position. Pain is alleviated by PT x 6 wks which ended in 2021, physician guided home exercises 5 times weekly since 2021, heat, ice, medications, repositioning and rest . Interventional procedures include SCOOBY L5-S1 x1 Medications include Robaxin, Celebrex, Ketorolac REVIEW OF ORGAN SYSTEMS: CONSTITUTIONAL: No fevers or chills. No recent weight loss. NEUROLOGICAL: + numbness and tingling along the distal extremities. No seizure disorders or headaches. MUSCULOSKELETAL: + pain PSYCHIATRIC: Denies current depression or suicidal thoughts. Physical Examinations : Constitutional : Cooperative , not in acute distress . Neurologic : Cranial nerve II to XII intact. No focal neurological deficits. Psychiatric : alert & oriented x 3. Matching mood & appropriate affect. Judgment & insight intact. Musculoskeletal : Cervical Spine Motor strength in the deltoid and biceps: Normal right side. Normal Left side Motor strength biceps and the wrist extensors: Normal right side . Normal left side Motor strength in the triceps muscle: Normal right side. Normal left side Deep tendon reflexes: Normal at the biceps. Normal at Brachioradialis. Normal at triceps Vertebral body tenderness to deep palpation over Cervical facet loading test: positive bilaterally Spurling test: positive bilaterally Neck distraction test: positive bilaterally Azam sign: positive bilaterally Lumbar spine Motor strength lower extremities ,thigh and legs 5/5 Right side , 5/5 Left side Deep tendon reflexes : Normal Knee Jerk. Normal Ankle Jerk Vertebral body tenderness over L5 Rucker Test positive BL L5-S1 Lumbar facet Loading Test: positive Right / positive Left L4-L5, L5-S1 Range of motion of the lumbar spine Flexion 30 degrees, extension 10 degrees Straight Leg Raise test: Left/ Right positive at degrees Lilo test: positive right / positive left. Severe tenderness over the Sacroiliac joint on the Right / Left sides Gaenslen test: positive bilaterally Seated flexion test: positive bilaterally. Sacral spine : Severe tenderness over the Sacroiliac joint: right side / left side Range of motion: Flexion of the lumbar spine <60 degrees Range of motion: Extension of the lumbar spine <20 degrees Gaenslen's Test positive Lilo test: positive right side / left side Thigh Thrust Test Sacral Thrust Test Imaging: MRI non contrast of the lumbar spine from 04/27/24 Assessment/ Plan : Lumbar radiculopathy Recommendation of BL MBB L4-L5/ L5-S1 #2. Risks, benefits of procedure discussed and patient verbalized understanding. Admits to anti- coagulant use or medical history of diabetes. Protocol for discontinuation/ continuation of medications kathi procedure discussed. Minimal anesthesia including Fentanyl and Versed if clinically indicated. All questions answered. I have spent greater than 30 minutes on patient care today. Dr Lafleur was nimo ilable by phone for the evaluation of this patient. The time was used to review the medical records including relevant urine studies and Prescription history (MAPs), review of the available imaging, evaluation and examination of the patient, coordination of care with the medical staff and if applicable referring physicians, as well as creation of the medical record PQRS Narrative: Smoking Status Never smoker Hx Alcohol Use (MH) No Home Medications: Ambulatory Orders Cholestyramine (with Sugar) [Cholestyramine Packet] 4 gm PO DAILY 12/26/18 Losartan [Cozaar] 100 mg PO DAILY 12/26/18 Celecoxib [CeleBREX] 100 mg PO BID PRN 05/28/24 Semaglutide [Wegovy] 1 mg SQ [place] 05/28/24 methocarbamoL 500 mg PO DAILY PRN 05/28/24 FLUoxetine HCL [PROzac] 10 mg PO DAILY 07/22/24 hydroCHLOROthiazide 25 mg PO DAILY 07/22/24 Controlled Substance Measures - Controlled Substance Measures Is patient prescribed a controlled substance at discharge?: No
== END ==
LOC: PNWHC3 08:16
PROVIDERS: ATTEND Specialist
DX: M47.816 Spondylosis without myelopathy or radiculopathy, lumbar region
CPT/HCPCS: 99211

== ENCOUNTER 2024-08-25 07:33 | Day surgery (SDC) | payer BC ==
[2024-08-24 12:05] VITALS: BMI 51.0
[2024-08-25] MEDS: IV FLUID CONTINUATION 1,000 ML IV ONE ×2 (07:41→09:39)
[2024-08-25 07:56] VITALS: RESP 16; TEMP 97.5
[2024-08-25] MEDS: LACTATED RINGERS 1,000 ML BAG IV STA (07:58)
[2024-08-25] MEDS ORDERED: ROPIVACAINE 5MG/ML 20ML VIAL ONE (09:07)
[2024-08-25] MEDS ORDERED: MIDAZOLAM 2 MG/2 ML VIAL ONE (09:07)
--- NOTE | 2024-08-25 09:44 | P.PCN ---
Description of Procedure: Preprocedure diagnosis. 1. Lumbar spondylosis with facet joint arthropathy without myelopathy. 2. Lumbar degenerative disc disease. Postprocedure diagnosis. As above. Procedure done. Bilateral diagnostic block with local anesthetics at L3, L4, L5 medial branch to target the facet joint L4- 5 and L5-S1 with fluoroscopic guidan ce (fluoroscopy images are available in the radiology department) . Anesthesia. Moderate sedation with intravenous Versed 2 mg and fentanyl and local infiltration with local anesthetics. In OR, continuous pulse ox, EKG, blood pressure and verbal communication was maintained. Time. Blood loss. Minimal. Indication. The patient has low back pain secondary to lumbar facet joint arthropathy. Discussed the procedure and alternative and complications which includes infection, bleeding, nerve damage, paralysis ,aggravation of pain. Patient understands and all questions were answered. Patient iunderstands that if any pain relief occurs it will last for a few hours to a few days maximum. Procedure description. After getting consent patient was taken in the OR in prone position. Back prepped with chlorhexidine and draped in sterile fashion. After injecting 5 mL of plain 1% lidocaine subcutaneously, a 22-gauge spinal needle was introduced under tunnel vision of the fluoroscope at the junction of the superior articular process with RIGHT ala of the sacrum. With slight oblique fluoroscope, after injecting 5 mL of plain 1% lidocaine subcutaneously, a 22-gauge spinal needle was introduced under tunnel vision of the fluoroscope at the junction of the superior articular process with RIGHT L5 transverse process, junction of the superior articular process with the RIGHT L4 transverse process. Negative CSF, negative blood, negative paresthesia. After needle position confirmation by AP and crosstable lateral view, after negative aspiration, half milliliters of solution were injected at each point. Total 1- 1/2 mL of solution was injected on the right side which consists of 0.5% ropivacaine. In exactly same way, LEFT sided injections were done at the following 3 points. Junction of the superior articular process with left ala of the sacrum, junction of the superior articular process with the left L5 transverse process, junction of the superior articular process with left L4 transverse process using 0.5 mL of solution at each point. Total 1-1/2 mL of solution was injected on the left side which consists of 0.5% ropivacaine . Spinal needles were taken out and bandages were applied. Disposition. Patient tolerated the procedure well. No complication. Discharged home in stable condition
--- NOTE | 2024-08-25 10:00 | FL ---
EXAMINATION TYPE: FL guided pain mgmt statistic DATE OF EXAM: 08/25/2024 FLUOROSCOPY Cuco lumbar FB 1 m in 11 sec fl .[id number] DAP 5 images are submitted. [facility], , 08/25/2024 9:57 AM
[2024-08-25 10:01] VITALS: BP 121/78; PULSE 77
== END 2024-08-25 10:15 ==
LOC: ORPAIN 07:33
PROVIDERS: ATTEND Pain Medicine Interventional Pain Medicine
DX: M47.816 Spondylosis without myelopathy or radiculopathy, lumbar region (principal); M51.369 Other intervertebral disc degeneration, lumbar region without mention of lumbar back pain or lower extremity pain; Z88.8 Allergy status to other drugs, medicaments and biological substances
CPT/HCPCS: 81025; 64493; 64494; J2250; J2795; 99152

== ENCOUNTER → 2024-09-07 | Outpatient (CLI) | payer BC ==
[2024-09-07 08:48] VITALS: BP 142/86; PULSE 77; RESP 16; TEMP 97.1
--- NOTE | 2024-09-07 15:44 | P.PAINPG ---
PQRS Measure Charge Sheet Comment: HISTORY OF PRESENT ILLNESS: A 49 yr old female presents today w severe and chronic LBP > 1 yr secondary to radiculopathy, spondylosis and facet arthropathy without myelopathy for evaluation s/p BL MBB L4-L5/ L5-S1 #2. Pt states she experienced 90 % pain relief x 2 wks s/p procedure. Pt states pain level is provoked at 6 /10 in intensity, intermittent, localized in the lumbar spine, predominantly axial, sharp in character without shooting pain. Pain is provoked by sitting up from a supine position. Pain is alleviated by PT x 6 wks which ended in 2021, physician guided home exercises 5 times weekly since 2021, heat, ice, medications, repositioning and rest . Interventional procedures include SCOOBY L5-S1 x1, BL MBB L3-L5 x2 Medications include Robaxin, Celebrex, Ketorolac REVIEW OF ORGAN SYSTEMS: CONSTITUTIONAL: No fevers or chills. No recent weight loss. NEUROLOGICAL: + numbness and tingling along the distal extremities. No seizure disorders or headaches. MUSCULOSKELETAL: + pain PSYCHIATRIC: Denies current depression or suicidal thoughts. Physical Examinations : Constitutional : Cooperative , not in acute distress . Neurologic : Cranial nerve II to XII intact. No focal neurological deficits. Psychiatric : alert & oriented x 3. Matching mood & appropriate affect. Judgment & insight intact. Musculoskeletal : Cervical Spine Motor strength in the deltoid and biceps: Normal right side. Normal Left side Motor strength biceps and the wrist extensors: Normal right side . Normal left side Motor strength in the triceps muscle: Normal right side. Normal left side Deep tendon reflexes: Normal at the biceps. Normal at Brachioradialis. Normal at triceps Vertebral body tenderness to deep palpation over Cervical facet loading test: positive bilaterally Spurling test: positive bilaterally Neck distraction test: positive bilaterally Azam sign: positive bilaterally Lumbar spine Motor strength lower extremities ,thigh and legs 5/5 Right side , 5/5 Left side Deep tendon reflexes : Normal Knee Jerk. Normal Ankle Jerk Vertebral body tenderness over L5 Rucker Test positive BL L5-S1 Lumbar facet Loading Test: positive Right / positive Left L4-L5, L5-S1 Range of motion of the lumbar spine Flexion 30 degrees, extension 10 degrees Straight Leg Raise test: Left/ Right positive at degrees Lilo test: positive right / positive left. Severe tenderness over the Sacroiliac joint on the Right / Left sides Gaenslen test: positive bilaterally Seated flexion test: positive bilaterally. Sacral spine : Severe tenderness over the Sacroiliac joint: right side / left side Range of motion: Flexion of the lumbar spine <60 degrees Range of motion: Extension of the lumbar spine <20 degrees Gaenslen's Test positive Lilo test: positive right side / left side Thigh Thrust Test Sacral Thrust Test Imaging: MRI non contrast of the lumbar spine from 04/27/24 Assessment/ Plan : Lumbar radiculopathy Recommendation of BL RFA L4-L5/ L5-S1. Risks, benefits of procedure discussed and patient verbalized understanding. Admits to anti- coagulant use or medical history of diabetes. Protocol for discontinuation/ continuation of medications kathi procedure discussed. Minimal anesthesia including Fentanyl and Versed if clinically indicated. All questions answered. I have spent greater than 30 minutes on patient care today. Dr Lafleur was available by phone for the evaluation of this patient. The time was used to review the medical records including relevant urine studies and Prescription history (MAPs), review of the available imaging, evaluation and examination of the patient, coordination of care with the medical staff and if applicable referring physicians, as well as creation of the medical record PQRS Narrative: Smoking Status Never smoker Hx Alcohol Use (MH) No Home Medications: Ambulatory Orders Cholestyramine (with Sugar) [Cholestyramine Packet] 4 gm PO DAILY 12/26/18 Losartan [Cozaar] 100 mg PO DAILY 12/26/18 Celecoxib [CeleBREX] 100 mg PO BID PRN 05/28/24 methocarbamoL 500 mg PO DAILY PRN 05/28/24 FLUoxetine HCL [PROzac] 10 mg PO DAILY 07/22/24 hydroCHLOROthiazide 25 mg PO DAILY 07/22/24 Semaglutide [Wegovy] 1.7 mg SQ [place] 08/24/24 Controlled Substance Measures - Controlled Substance Measures Is patient prescribed a controlled substance at discharge?: No
== END ==
LOC: PNWHC3 08:12
PROVIDERS: ATTEND Specialist
DX: M54.16 Radiculopathy, lumbar region (principal)
CPT/HCPCS: 99211

== ENCOUNTER 2024-09-29 09:30 | Day surgery (SDC) | payer BC ==
[~2024-09-29 09:30] MED LIST changes: -DEXAMETHASONE SOD PHOSPHATE 10 MG/ML 1 ML VIAL IV ONE; -HYDROmorphone 0.5 MG/0.5 ML SYRINGE IVP PRN; -MIDAZOLAM 2 MG/2 ML VIAL IV PRN; -ONDANSETRON 4 MG/2 ML VIAL IVP ONE; -SCOPOLAMINE 1.5MG/72HR PATCH TRANSDERM ONE; -ceFAZolin IN SWFI 2 GM/20 ML SYRINGE IVP ONE
[2024-09-29] MEDS: IV FLUID CONTINUATION 1,000 ML IV ONE ×2 (10:07→11:11)
[2024-09-29 10:22] VITALS: TEMP 97.1
[2024-09-29] MEDS ORDERED: MIDAZOLAM 2 MG/2 ML VIAL ONE (10:31)
[2024-09-29] MEDS ORDERED: methylPREDNISolone ACETATE 40 MG/ML 1 ML VIAL ONE (10:31)
[2024-09-29] MEDS ORDERED: fentaNYL (PF) 50 MCG/ML 2 ML AMP ONE (10:31)
[2024-09-29] MEDS ORDERED: ROPIVACAINE 5MG/ML 20ML VIAL ONE (10:31)
--- NOTE | 2024-09-29 11:07 | P.PCN ---
Date of Procedure: 09/29/24 Procedure(s) Performed: PREOPERATIVE DIAGNOSIS: 1-Lumbar Spondylosis with Facet Arthropathy without myelopathy. 2- Lumber degenerative disc disease. POSTOPERATIVE DIAGNOSIS: 1- Lumbar Spondylosis with Facet Arthropathy without myelopathy. 2- Lumber degenerative disc disease. PROCEDURES : Bilateral Radiofrequency thermocoagulation, L3 , L4 , L5 medial branch, with fluoroscopic guidance (fluoro images in the radiology department) ( to denervate the facet joint at bilateral L4-5 ,and L5- S1 levels ). ANESTHESIA: Moderate sedation with intravenous versed 2 mg and fentaneyl 150 mcg, and local infiltration with Ropivacaine 0.5 % . ( Sedation start time 10:31, end time 11:02 ) EBL: Minimal PROCEDURE INDICATION: The patient with low back pain secondary to lumbar facet arthropathy who had more than 50% relief of her pain with previous diagnostic lumbar medial branch block with bupivacaine. PROCEDURE DESCRIPTION / TECHNIQUE: The patient was seen and identified in the preoperative area. Risks, benefits, complications, including but not limited to risk of infection ,bleeding , allergic reactions to the medications and no complete pain releife , and alternatives were discussed with the patient, the patient agreed to proceed with the procedure and signed the consent. IV was started. Vital signs remained stable throughout the procedure. Patient was taken to the OR and time out was completed. The patient was placed in the prone position on the procedure table. The lumber area was prepped and draped in the usual sterile fashion. . Vital signs were closely monitored during the procedure .IV sedation was used during the procedure to decrease patients anxiety. Using AP and then oblique fluoroscopy, the ``eye of the Jaime dog corresponding to the connection between the superior and transverse articular processes of right L3, L4, and L5 were identified, marked, and localized with 1% lidocaine. Subsequently, a 18 [id number] (VENOM ) radiofrequency cannula with a 10-mm active tip was advanced guided by fluoroscopy to each of the``eyes of the Jaime dog at right L3, L4, and L5. Each site then underwent sensory testing at 50 Hz and 0 to 1 volt and motor testing at 2.5 Hz and 0 to 3 volt with local stimulation, but no radicular symptoms down the legs. Thereafter each sites underwent radiofrequency thermocoagulation at 80 degrees celsius for 90 seconds after injecting 0.5 ml of PF Ropivacaine 1ml, then after the t hermocoagulation done , 1 ml of the block solution containing Depo-Medrol 20 mg and 3 ml of Ropivacaine 0.5% was injected at the right L3 , L4 , and L5 , levels after negative aspiration of CSF and blood and with no paresthesias. Cannulas were retracted while injecting lidocaine 1% until the needle is out. The same procedure was repeated at the level of Left L3, L4, and L5 levels. At the end of the procedure, the skin was cleansed and bandages were applied. COMPLICATIONS: No acute complications. DISPOSITION / PLANS: The patient was placed in a supine position and transferred to the recovery area in a stable condition for observation and was discharged from the recovery room after meeting discharge criteria. Home discharge instructions given to the patient by the staff. The patient was reexamined prior to discharge. The patient will schedule a follow up in the clinic in 2-4 weeks.
[2024-09-29 11:15] VITALS: RESP 14
[2024-09-29 11:33] VITALS: BP 138/65; PULSE 68
--- NOTE | 2024-09-29 11:56 | FL ---
EXAMINATION TYPE: FL guided pain mgmt statistic DATE OF EXAM: 09/29/2024 FLUOROSCOPY BILAT RF LUMBAR, 28SEC FL TIME, DAP=.[id number]. 9 images submitted. [facility], , 09/29/2024 11:54 AM
== END 2024-09-29 12:00 | disposition home or self-care (01) ==
LOC: ORPAIN 09:30
PROVIDERS: ATTEND Specialist
DX: M51.369 Other intervertebral disc degeneration, lumbar region without mention of lumbar back pain or lower extremity pain (principal); M47.816 Spondylosis without myelopathy or radiculopathy, lumbar region
CPT/HCPCS: 81025; 64635; 64636; J2250; J3010; J2795; J1010; 99152; 99153

== ENCOUNTER → 2024-10-29 | Outpatient (CLI) | payer BC ==
[2024-10-29 10:16] VITALS: BP 119/82; PULSE 96; RESP 16; TEMP 98.4
--- NOTE | 2024-10-29 13:36 | P.PAINPG ---
Objective - Vital Signs Vital signs: Intake & Output 10/28/24 10/29/24 10/29/24 18:59 06:59 18:59 Weight 119.748 kg PQRS Measure Charge Sheet Comment: HISTORY OF PRESENT ILLNESS: A 49 yr old female presents today w severe and chronic LBP > 1 yr secondary to radiculopathy, spondylosis and facet arthropathy without myelopathy, L Sacroliitis for evaluation s/p BL RFA L4-L5/ L5-S1. Pt states she experienced 85 % pain relief s/p procedure. Pt states pain level is provoked at 2 /10 in intensity, intermittent, localized in the lumbar spine, predominantly axial, sharp in character w occasional shooting pain towards the L buttock and thigh. Pain is provoked by sitting up from a supine position. Pain is alleviated by PT x 6 wks which ended in 2021, physician guided home exercises 5 times weekly since 2021, heat, ice, medications, repositioning and rest . Interventional procedures include SCOOBY L5-S1 x1, BL RFA L3-L5 (Sep 2024) Medications include Robaxin, Celebrex, Ketorolac REVIEW OF ORGAN SYSTEMS: CONSTITUTIONAL: No fevers or chills. No recent weight loss. NEUROLOGICAL: + numbness and tingling along the distal extremities. No seizure disorders or headaches. MUSCULOSKELETAL: + pain PSYCHIATRIC: Denies current depression or suicidal thoughts. Physical Examinations : Constitutional : Cooperative , not in acute distress . Neurologic : Cranial nerve II to XII intact. No focal neur ological deficits. Psychiatric : alert & oriented x 3. Matching mood & appropriate affect. Judgment & insight intact. Musculoskeletal : Cervical Spine Motor strength in the deltoid and biceps: Normal right side. Normal Left side Motor strength biceps and the wrist extensors: Normal right side . Normal left side Motor strength in the triceps muscle: Normal right side. Normal left side Deep tendon reflexes: Normal at the biceps. Normal at Brachioradialis. Normal at triceps Vertebral body tenderness to deep palp ation over Cervical facet loading test: positive bilaterally Spurling test: positive bilaterally Neck distraction test: positive bilaterally Azam sign: positive bilaterally Lumbar spine Motor strength lower extremities ,thigh and legs 5/5 Right side , 5/5 Left side Deep tendon reflexes : Normal Knee Jerk. Normal Ankle Jerk Vertebral body tenderness over L5 Urcker Test positive BL L5-S1 Lumbar facet Loading Test: positive Right / positive Left L4-L5, L5-S1 Range of motion of the lumbar spine Flexion 30 degrees, extension 10 degrees Straight Leg Raise test: Left/ Right positive at degrees Lilo test: positive right / positive left. Severe tenderness over the Sacroiliac joint on the Right / Left sides Gaenslen test: positive bilaterally Seated flexion test: positive bilaterally. Sacral spine : Severe tenderness over the Sacroiliac joint: right side / left side Range of motion: Flexion of the lumbar spine <60 degrees Range of motion: Extension of the lumbar spine <20 degrees Gaenslen's Test positive L Lilo test: positive right side / left side Thigh Thrust Test L positive Sacral Thrust Test Imaging: MRI non contrast of the lumbar spine from 04/27/24 Assessment/ Plan : Lumbar radiculopathy, L Sacroiliitis Recommendation of L SI injection #1. Risks, benefits of procedure discussed and patient verbalized understanding. Admits to anti- coagulant use or medical history of diabetes. Protocol for discontinuation/ continuation of medications kathi procedure discussed. All questions answered. I have spent greater than 30 minutes on patient care today. Dr Lafleur was available by phone for the evaluation of this patient. The time was used to review the medical records including relevant urine studies and Prescription history (MAPs), review of the available imaging, evaluation and examination of the patient, coordination of care with the medical staff and if applicable refe rring physicians, as well as creation of the medical record - Pain Location Back Non-Pharmacological Interventions: Position/Reposition Pharmacological Interventions: Discuss Pain Med Options PQRS Narrative: Smoking Status Never smoker Hx Alcohol Use (MH) No Home Medications: Ambulatory Orders Cholestyramine (with Sugar) [Cholestyramine Packet] 4 gm PO DAILY 12/26/18 Losartan [Cozaar] 100 mg PO DAILY 12/26/18 Celecoxib [CeleBREX] 100 mg PO BID PRN 05/28/24 methocarbamoL 500 mg PO DAILY PRN 05/28/24 FLUoxetine HCL [PROzac] 10 mg PO DAILY 07/22/24 hydroCHLOROthiazide 25 mg PO DAILY 07/22/24 Acetaminophen Tab [Tylenol] 650 mg PO Q6H 10/29/24 diazePAM [Valium] 5 mg PO DAILY PRN 1 Days #2 tab 10/29/24 Controlled Substance Measures - Controlled Substance Measures Is patient prescribed a controlled substance at discharge?: Yes When asked, does pt state using other controlled substances?: No If prescribed controlled substance>3 days was MAPS reviewed?: Prescribed <3 Days
== END ==
LOC: PNWHC3 09:34
PROVIDERS: ATTEND Specialist
DX: M46.1 Sacroiliitis, not elsewhere classified (principal); M54.16 Radiculopathy, lumbar region; M47.816 Spondylosis without myelopathy or radiculopathy, lumbar region; Z88.1 Allergy status to other antibiotic agents; Z88.8 Allergy status to other drugs, medicaments and biological substances
CPT/HCPCS: 99211

== ENCOUNTER → 2024-11-13 | Day surgery (SDC) | payer BC ==
[~2024-11-13] MED LIST changes: +IOPAMIDOL M200 10 ML VIAL ONE; +ROPIVACAINE 5MG/ML 20ML VIAL ONE; +methylPREDNISolone ACETATE 80 MG/ML 1 ML VIAL ONE
[2024-11-13 09:12] VITALS: RESP 16; TEMP 98.1
--- NOTE | 2024-11-13 09:51 | P.PCN ---
Date of Procedure: 11/13/24 Procedure(s) Performed: Procedure= Left sacroiliac joints steroid injection under fluoroscopy guidance (fluoroscopy image stored on file in the radiology Department ) Preoperative diagnosis= 1-left sacroiliitis 2-lumbar degenerative disc disease 3-lumbar facet arthropathy Postoperative diagnosis=Same as preop Diagnosis . Complication = none Condition= stable Anesthesia= local anesthesia with ropivacaine 0.5% 4 ml only Indication for the procedure= patient complaining of low back pain , examination was positive for severe tenderness over the Left sacroiliac joints , and patient diagnosed with sacroiliitis, for this reason she was good candidate for sacroiliac joint steroid injection. Description of the procedure= procedure risk and benefits discussed with the patient, including but not limited, risk of infection and bleeding, and ALLERGIC reaction to the medication and not complete pain relief and patient agreed with the preceding patient taken to the operating room, placed in prone position or standard monitors applied to the patient then after induction of anesthesia back prepped with chlorhexidine 3 times , Then under strict sterile technique, first I did the Left sacroiliac joint the which was identified under fluoroscopy guidance been local infiltration of the skin and subcu interstitial with lidocaine 1% then 22-gauge Quincke Needle advanced slowly under fluoroscopy and placed in the left sacroiliac joint needle placement confirmed with AP and oblique and lateral view, then after that Isovue 200 one mL injected which confirmed the correct needle placement with the appropriate arthrogram of the sacroiliac joint, and after appropriate needle placement confirmed and after negative aspiration, or heme , then Ropivacaine 0.5% 2 mL, and 60 mg of Depo-Medrol mixed together and injected in the right sacroiliac joint after negative aspiration patient tolerated the procedure well without any complication.
--- NOTE | 2024-11-13 09:58 | FL ---
EXAMINATION TYPE: FL guided pain mgmt statistic DATE OF EXAM: 11/13/2024 9:52 AM COMPARISON: Pre Operative Images if available both CT/MRI or plain film CLINICAL INDICATION: Female, 49 years old with history of SI JT INJ; TECHNIQUE: FL guided pain mgmt statistic, multiple fluoroscopic images provided for procedure. Total fluoroscopy time: 4.3 seconds Total submitted images to PACS: 2 DAP: 0.16005 mGym2 Gycm2 uGym2 cGycm2 or equivalent. FINDINGS: Fluoroscopic images during injection for pain management demonstrate multilevel degeneration changes throughout the spine. No evidence for fracture. No acute process identified. IMPRESSION: 1. No evidence for intraoperative complication. 2. Please see the operative/procedural note for further details. [facility], , 11/13/2024 9:55 AM
[2024-11-13 10:15] VITALS: BP 137/79; PULSE 70
== END ==
LOC: ORPAIN 08:44
PROVIDERS: ATTEND Specialist
DX: M46.1 Sacroiliitis, not elsewhere classified (principal); M51.361 Other intervertebral disc degeneration, lumbar region with lower extremity pain only; Z88.8 Allergy status to other drugs, medicaments and biological substances
CPT/HCPCS: 81025; 27096; Q9966; J2795; J1010

== ENCOUNTER → 2025-02-03 | Outpatient (CLI) | payer BC ==
--- NOTE | 2025-02-03 15:40 | US ---
EXAMINATION TYPE: US thyroid st tissue head/neck DATE OF EXAM: 02/03/2025 COMPARISON: NONE CLINICAL INDICATION: Female, 49 years old with history of R59.0 LOCALIZED ENLARGED LYMPH NODES; No pa lpable. Right lateral anterior head to neck discomfort. TECHNIQUE: Sonographic images taken of patients area of concern. FINDINGS: Area of concern scanned. Lymph node seen in submandibular region with short axis = 0.6 cm and cortical thickness = 2.7 mm IMPRESSION: Subcentimeter benign-appearing lymph nodes in the right submandibular region at the area of clinical concern are noted. [facility], , 02/03/2025 3:38 PM
== END | disposition home or self-care (01) ==
LOC: RADUSWWP 14:49
PROVIDERS: ATTEND Family Medicine
DX: R59.0 Localized enlarged lymph nodes (principal)
CPT/HCPCS: 76536

== ENCOUNTER → 2025-04-01 | Outpatient (CLI) | payer BC ==
[2025-04-01 08:19] VITALS: BP 162/88; PULSE 86; RESP 16; TEMP 97.5
--- NOTE | 2025-04-05 14:21 | P.PAINPG ---
Objective - Vital Signs Vital signs: Intake & Output 03/31/25 04/01/25 04/01/25 18:59 06:59 18:59 Weight 121.109 kg PQRS Measure Charge Sheet Comment: HISTORY OF PRESENT ILLNESS: A 49 yr old female presents today w severe and chronic LBP > 1 yr secondary to radiculopathy, spondylosis and facet arthropathy without myelopathy, L Sacroliitis for evaluation. She underwent a L SI injection in Oct 2024 where she experienced 75% pain relief x 3 mo s/p procedure. Pt states pain level is provoked at 6-9 /10 in intensity, intermittent, localized in the lumbar spine, predominantly axial, sharp in character w occasional shooting pain towards the L buttock and hip. Pain is provoked by sitting up from a supine position. Pain is alleviated by PT x 6 wks which ended in 2021, physician guided home exercises 5 times weekly since 2021, heat, ice, medications, repositioning and rest . Interventional procedures include SCOOBY L5-S1 x1, BL RFA L3-L5 (Sep 2024), L SI x1 (11/21) Medications include Robaxin, Celebrex, Ketorolac, Tyl REVIEW OF ORGAN SYSTEMS: CONSTITUTIONAL: No fevers or chills. No recent weight loss. NEUROLOGICAL: + numbness and tingling along the distal extremities. No seizure disorders or headaches. MUSCULOSKELETAL: + pain PSYCHIATRIC: Denies current depression or suicidal thoughts. Physical Examinations : Constitutional : Cooperative , not in acute distress . Neurologic : Cranial nerve II to XII intact. No focal neurological deficits. Psychiatric : alert & oriented x 3. Matching mood & appropriate affect. Judgment & insight intact. Musculoskeletal : Cervical Spine Motor strength in the deltoid and biceps: Normal right side. Normal Left side Motor strength biceps and the wrist extensors: Normal right side . Normal left side Motor strength in the triceps muscle: Normal right side. Normal left side Deep tendon reflexes: Normal at the biceps. Normal at Brachioradialis. Normal at triceps Vertebral body tenderness to deep palpation over Cervical facet loading test: positive bilaterally Spurling test: positive bilaterally Neck distraction test: positive bilaterally Azam sign: positive bilaterally Lumbar spine Motor strength lower extremities ,thigh and legs 5/5 Right side , 5/5 Left side Deep tendon reflexes : Normal Knee Jerk. Normal Ankle Jerk Vertebral body tenderness over L5 Rucker Test positive BL L5-S1 Lumbar facet Loading Test: positive Right / positive Left L4-L5, L5-S1 Range of motion of the lumbar spine F lexion 30 degrees, extension 10 degrees Straight Leg Raise test: Left/ Right positive at degrees Lilo test: positive right / positive left. Severe tenderness over the Sacroiliac joint on the Right / Left sides Gaenslen test: positive bilaterally Seated flexion test: positive bilaterally. Sacral spine : Severe tenderness over the Sacroiliac joint: right side / left side Range of motion: Flexion of the lumbar spine <60 degrees Range of motion: Extension of the lumbar spine <20 degrees Gaenslen's Test positive L Lilo test: positive right side / left side Thigh Thrust Test L positive Sacral Thrust Test Imaging: MRI non contrast of the lumbar spine from 04/27/24 Assessment/ Plan : Lumbar radiculopathy, L Sacroiliitis Recommendation of L SI #2. Risks, benefits of procedure discussed and pt verbalized understanding. May benefit from L TFESI L4-S1 in the near future. All questions answered. I have spent greater than 30 minutes on patient care today. Dr Lafleur was available by phone for the evaluation of this patient. The time was used to review the medical records including relevant urine studies and Prescription history (MAPs), review of the available imaging, evaluation and examination of the patient, coordination of care with the medical staff and if applicable referring physicians, as well as creation of the medical record - Pain Location Left Lower Back Non-Pharmacological Interventions: Heat, Ice, Inactivity, Position/Reposition, Relaxation Technique, Sitting, Standing, Stretching Pharmacological Interventions: Epidural, PRN Medication PQRS Narrative: Smoking Status Never smoker Hx Alcohol Use (MH) Yes: occasional/rare Home Medications: Ambulatory Orders Cholestyramine (with Sugar) [Cholestyramine Packet] 4 gm PO DAILY 12/26/18 Losartan [Cozaar] 100 mg PO DAILY 12/26/18 Celecoxib [CeleBREX] 100 mg PO BID PRN 05/28/24 methocarbamoL 500 mg PO DAILY PRN 05/28/24 FLUoxetine HCL [PROzac] 10 mg PO DAILY 07/22/24 hydroCHLOROthiazide 25 mg PO DAILY 07/22/24 Acetaminophen Tab [Tylenol] 650 mg PO Q6H PRN 10/29/24 diazePAM [Valium] 10 mg PO DAILY 1 Days #1 tab 04/01/25 Controlled Substance Measures - Controlled Substance Measures Is patient prescribed a controlled substance at discharge?: Yes When asked, does pt state using other controlled substances?: No If prescribed controlled substance>3 days was MAPS reviewed?: Prescribed <3 Days
== END ==
LOC: PNWHC3 08:01
PROVIDERS: ATTEND Specialist
DX: M47.26 Other spondylosis with radiculopathy, lumbar region (principal); M46.1 Sacroiliitis, not elsewhere classified; Z88.8 Allergy status to other drugs, medicaments and biological substances
CPT/HCPCS: 99211

== ENCOUNTER 2025-04-23 06:17 | Day surgery (SDC) | payer BC ==
[2025-04-21 09:46] VITALS: BMI 38.0
[2025-04-23] MEDS ORDERED: LACTATED RINGERS 1,000 ML IV SCH (06:25)
[2025-04-23 06:43] VITALS: TEMP 97.6
[2025-04-23] MEDS ORDERED: methylPREDNISolone ACETATE 80 MG/ML 1 ML VIAL ONE (07:06)
[2025-04-23] MEDS ORDERED: IOPAMIDOL M200 10 ML VIAL ONE (07:06)
[2025-04-23] MEDS ORDERED: ROPIVACAINE 5 MG/ML 30 ML VIAL ONE (07:06)
--- NOTE | 2025-04-23 07:15 | P.PCN ---
Date of Procedure: 04/23/25 Procedure(s) Performed: Procedure= Left sacroiliac joints steroid injection under fluoroscopy guidance (fluoroscopy image stored on file in the radiology Department ) Preoperative diagnosis= 1-left sacroiliitis 2-lumbar degenerative disc disease 3-lumbar facet arthropathy Postoperative diagnosis=Same as preop Diagnosis . Complication = none Condition= stable Anesthesia= local anesthesia with ropivacaine 0.5% 2 ml only Indication for the procedure= patient complaining of low back pain , examination was positive for severe tenderness over the Left sacroiliac joints , and patient diagnosed with sacroiliitis, for this reason she was good candidate for sacroiliac joint steroid injection. Description of the procedure= procedure risk and benefits discussed with the patient, including but not limited, risk of infection and bleeding, and ALLERGIC reaction to the medication and not complete pain relief and patient agreed with the preceding patient taken to the operating room, placed in prone position or standard monitors applied to the patient then after induction of anesthesia back prepped with chlorhexidine 3 times , Then under strict sterile technique, first I did the Left sacroiliac joint the which was identified under fluoroscopy guidance been local infiltration of the skin and subcu interstitial with lidocaine 1% then 23-gauge Quincke Needle advanced slowly under fluoroscopy and placed in the left sacroiliac joint needle placement confirmed with AP and oblique and lateral view, then after that Isovue 200 one mL injected which confirmed the correct needle placement with the appropriate arthrogram of the sacroiliac joint, and after appropriate needle placement confirmed and after negative aspiration, or heme , then Ropivacaine 0.5% 2 mL, and 60 mg of Depo-Medrol mixed together and injected in the Left sacroiliac joint after negative aspiration patient tolerated the procedure well without any complication.
[2025-04-23 07:39] VITALS: BP 127/78; PULSE 78; RESP 18
--- NOTE | 2025-04-23 08:45 | FL ---
Fluoroscopy INDICATION: Pain FINDINGS: Fluoroscopy time: 16 seconds. Total dose area product (DAP) in uGy*m?, mGy*cm? (or similar): 0.79694 Images obtained: 2. Images document needle directed to the inferior sacroiliac joint IMPRESSION: 1. Documentation of fluoroscopy. [facility], , 04/23/2025 8:43 AM
== END 2025-04-23 08:00 | disposition home or self-care (01) ==
LOC: ORPAIN 06:17
PROVIDERS: ATTEND Specialist
DX: M46.1 Sacroiliitis, not elsewhere classified (principal); M51.360 Other intervertebral disc degeneration, lumbar region with discogenic back pain only; M47.816 Spondylosis without myelopathy or radiculopathy, lumbar region
CPT/HCPCS: 81025; 27096; J2795; Q9966; J1010

== ENCOUNTER → 2025-05-19 | Outpatient (CLI) | payer BC ==
[2025-05-19 13:33] VITALS: BP 144/81; PULSE 95; RESP 16
--- NOTE | 2025-05-19 15:59 | P.PAINPG ---
Objective - Vital Signs Vital signs: Vital Signs Temp Pulse 95 05/19/25 13:23 Resp 16 05/19/25 13:23 BP 144/81 05/19/25 13:23 Pulse Ox 96 05/19/25 13:23 FiO2 Intake & Output 05/18/25 05/19/25 05/19/25 18:59 06:59 18:59 Weight 120.656 kg PQRS Measure Charge Sheet Mode of Arrival: Ambulatory Comment: HISTORY OF PRESENT ILLNESS: A 49 yr old female presents today w severe and chronic LBP > 1 yr secondary to radiculopathy, spondylosis and facet arthropathy without myelopathy, L Sacroliitis for evaluation s/p L SI #2 Pt states she experienced 75% pain relief x 1 wk s/p procedure. Pt states pain level is provoked at 5-8 /10 in intensity, intermittent, localized in the lumbar spine, predominantly axial, sharp in character w occasional shooting pain towards the L buttock and hip. Pain is provoked by sitting up from a supine position. Pain is alleviated by PT x 6 wks which ended in 2021, physician guided home exercises 5 times weekly since 2021, heat, ice, medications, repositioning and rest . Interventional procedures include SCOOBY L5-S1 x1, BL RFA L3-L5 (Sep 2024), L SI x2 (11/21, 04/21) Medications include Robaxin, Celebrex, Ketorolac, Tyl REVIEW OF ORGAN SYSTEMS: CONSTITUTIONAL: No fevers or chills. No recent weight loss. NEUROLOGICAL: + numbness and tingling along the distal extremities. No seizure disorders or headaches. MUSCULOSKELETAL: + pain PSYCHIATRIC: Denies current depression or suicidal thoughts. Physical Examinations : Constitutional : Cooperative , not in acute distress . Neurologic : Cranial nerve II to XII intact. No focal neurological deficits. Psychiatric : alert & oriented x 3. Matching mood & appropriate affect. Judgment & insight intact. Musculoskeletal : Cervical Spine Motor strength in the deltoid and biceps: Normal right side. Normal Left side Motor strength biceps and the wrist extensors: Normal right side . Normal left side Motor strength in the triceps muscle: Normal right side. Normal left side Deep tendon reflexes: Normal at the biceps. Normal at Brachioradialis. Normal at triceps Vertebral body tenderness to deep palpation over Cervical facet loading test: positive bilaterally Spurling test: positive bilaterally Neck distraction test: positive bilaterally Azam sign: positive bilaterally Lumbar spine Motor strength lower extremities ,thigh and legs 5/5 Right side , 5/5 Left side Deep tendon reflexes : Normal Knee Jerk. Normal Ankle Jerk Vertebral body tenderness over L5 Rucker Test positive BL L5-S1 Lumbar facet Loading Test: positive Right / positive Left L4-L5, L5-S1 Range of motion of the lumbar spine Flexion 30 degrees, extension 10 degrees Straight Leg Raise test: Left/ Right positive at degrees Lilo test: positive right / positive left. Severe tenderness over the Sacroiliac joint on the Right / Left sides Gaenslen test: positive bilaterally Seated flexion test: positive bilaterally. Sacral spine : Severe tenderness over the Sacroiliac joint: right side / left side Range of motion: Flexion of the lumbar spine <60 degrees Range of motion: Extension of the lumbar spine <20 degrees Gaenslen's Test positive L Lilo test: positive right side / left side Thigh Thrust Test L positive Sacral Thrust Test Imaging: MRI non contrast of the lumbar spine from 04/27/24 Assessment/ Plan : Lumbar radiculopathy, L Sacroiliitis s/p L diagnostic SI injection Recommendation of follow up w Dr Ledbetter to explore additional treatment options. Risks, benefits of procedure discussed and pt verbalized understanding. May benefit from L TFESI L4-S1 in the near future. All questions answered. I have spent greater than 30 minutes on patient care today. Dr Lafleur was available by phone for the evaluation of this patient. The time was used to review the medical records including relevant urine studies and Prescription history (MAPs), review of the available imaging, evaluation and examination of the patient, coordination of care with the medical staff and if applicable referring physicians, as well as creation of the medical record - Pain Location Bilateral Lower Back Non-Pharmacological Interventions: Inactivity, Position/Reposition Pharmacological Interventions: Block, Epidural, PRN Medication PQRS Narrative: Smoking Status Never smoker Blood Pressure 144/81 Pain Intensity [Bilateral 5 Lower Back] Scale Used Numeric (1 - 10) Hx Alcohol Use (MH) Yes: occasional/rare Home Medications: Ambulatory Orders Cholestyramine (with Sugar) [Cholestyramine Packet] 4 gm PO DAILY 12/26/18 Losartan [Cozaar] 100 mg PO DAILY 12/26/18 Celecoxib [CeleBREX] 100 mg PO BID PRN 05/28/24 methocarbamoL 500 mg PO DAILY PRN 05/28/24 FLUoxetine HCL [PROzac] 10 mg PO DAILY 07/22/24 hydroCHLOROthiazide 25 mg PO DAILY 07/22/24 Acetaminophen Tab [Tylenol] 650 mg PO Q6H PRN 10/29/24 diazePAM [Valium] 10 mg PO DIRECTED PRN 04/21/25 Controlled Substance Measures - Controlled Substance Measures Is patient prescribed a controlled substance at discharge?: No
== END ==
LOC: PNWHC3 13:13
PROVIDERS: ATTEND Specialist
DX: M46.1 Sacroiliitis, not elsewhere classified (principal); M47.26 Other spondylosis with radiculopathy, lumbar region; Z96.698 Presence of other orthopedic joint implants; Z88.8 Allergy status to other drugs, medicaments and biological substances
CPT/HCPCS: 99211